=== PATIENT | male | born 1995 | race Two or more races ===

== ENCOUNTER 2017-05-07 10:02 | Emergency (ER) | payer OTHER ==
[~2017-05-07] VITALS: Ht 190.5 cm; Wt 113.4 kg
[2017-05-07 10:46] LABS: Basophils # (auto) 0.1 uL; Basophils % (auto) 0.7 % (0.0-2.0); Eosinophils # (auto) 0.2 uL; Eosinophils % (auto) 1.7 % (0.0-7.0); Hematocrit 49.8 % (41.0-53.0); Hemoglobin 17.7 g/dL (13.5-17.5); Lymphocytes # (auto) 2.5 uL; Lymphocytes % (auto) 24.1 % (10.0-50.0); Mean Corpuscular Hgb Conc. 35.6 g/dL (32.0-36.0); Mean Corpuscular Volume 87.1 fL (80.0-100.0); Mean Platelet Volume 9.4 fL (7.4-10.4); Monocytes # (auto) 0.7 uL; Monocytes % (auto) 7.3 % (0.0-12.0); Neutrophils # (auto) 6.8 uL; Neutrophils % (auto) 66.2 % (37.0-80.0); Nucleated Red Blood Cells % 0.4 %; Platelet Count (auto) 255 10^3/uL (140-450); White Blood Cell 10.2 10^3/uL (4.4-10.8)
[2017-05-07 10:59] LABS: Albumin 3.9 g/dL (3.4-5.0); BUN/Creatinine Ratio 18.1; Bilirubin, Total 0.5 mg/dL (0.2-1.0); Calcium 8.9 mg/dL (8.5-10.1); Potassium 4.1 mmol/L (3.5-5.1); Total Protein 7.9 g/dL (6.4-8.2)
[2017-05-07 14:22] VITALS: BP 136/89
[2017-05-07 16:17] LABS: Urine Bilirubin Negative (Negative); Urine Blood Negative /uL (Negative); Urine Color Yellow (Yellow); Urine Glucose Normal (Normal); Urine Ketone Negative (Negative); Urine Nitrite Negative (Negative); Urine RBC <1 /hpf (0 - 3); Urine Squamous Epithelial Cell FEW /hpf (<5); Urine Urobilinogen Normal (Negative)
== END 2017-05-07 16:19 | disposition home or self-care (01) ==
LOC: ER 10:02
DX: R07.89 Other chest pain (principal); R42 Dizziness and giddiness
CPT/HCPCS: 36415; 71020; 80053; 80307; 81001; 85025; 93005

== ENCOUNTER 2017-07-24 12:00 | Emergency (ER) | payer BC, MEDICAID ==
[~2017-07-24] VITALS: Ht 190.5 cm; Wt 108.9 kg
[2017-07-24 12:05] VITALS: BP 137/99
[2017-07-24] MEDS ORDERED: cefTRIAXone SOD 1,000 MG VL IM ONE (13:00)
[2017-07-24] MEDS ORDERED: methylPREDNISolone SOD SUCC 125 MG/2 ML VL IM ONE (13:00)
== END 2017-07-24 13:01 | disposition home or self-care (01) ==
LOC: ER 12:00
DX: J03.90 Acute tonsillitis, unspecified (principal)
CPT/HCPCS: 96372; 99284; J0696; J2930

== ENCOUNTER 2017-12-09 13:10 | Emergency (ER) | payer BC, OTHER | END 2017-12-09 14:08 | disposition left against medical advice (07) | LOC: ER 13:10 | DX: H57.8 Other specified disorders of eye and adnexa (principal); Z53.21 Procedure and treatment not carried out due to patient leaving prior to being seen by health care provider ==

== ENCOUNTER 2017-12-10 07:34 | Emergency (ER) | payer BC, MEDICAID ==
[~2017-12-10] VITALS: Ht 190.5 cm; Wt 113.4 kg
[2017-12-10 07:42] VITALS: BP 148/81
[2017-12-10] MEDS ORDERED: diphenhdrAMINE HCL 25 MG CAP PO ONE (08:00)
[2017-12-10] MEDS ORDERED: methylPREDNISolone SOD SUCC 125 MG/2 ML VL IM ONE (08:00)
== END 2017-12-10 08:04 | disposition home or self-care (01) ==
LOC: ER 07:34
DX: L03.211 Cellulitis of face (principal)
CPT/HCPCS: 99283; J2930

== ENCOUNTER 2018-07-31 12:45 | Emergency (ER) | payer BC, MEDICAID ==
[~2018-07-31] VITALS: Ht 190.5 cm; Wt 108.9 kg
[2018-07-31 13:15] VITALS: BP 159/111
[2018-07-31] MEDS ORDERED: LIDOCAINE 1% HCL (LOCAL ANESTH.) INJ 20ML MDV IJ ONE (14:00)
== END 2018-07-31 14:13 | disposition home or self-care (01) ==
LOC: ER 12:45
DX: S61.210A Laceration without foreign body of right index finger without damage to nail, initial encounter (principal); W26.0XXA Contact with knife, initial encounter; Y93.89 Activity, other specified; Y92.89 Other specified places as the place of occurrence of the external cause; Y99.8 Other external cause status
CPT/HCPCS: 12001

== ENCOUNTER 2023-07-23 18:55 | Emergency (ER) | payer BC, MEDICAID, OTHER ==
[~2023-07-23] VITALS: Ht 190.5 cm; Wt 118.8 kg
[2023-07-23 20:05] LABS: Basophils # (auto) 0.1 10 ^3/uL (0-0.2); Basophils % (auto) 0.4 % (0.0-2.0); Eosinophils # (auto) 0.1 10 ^3/uL (0-0.8); Eosinophils % (auto) 0.3 % (0.0-7.0); Hematocrit 48.8 % (41.0-53.0); Hemoglobin 16.7 g/dL (13.5-17.5); Lymphocytes % (auto) 17.5 % (10.0-50.0); Mean Corpuscular Hemoglobin 29.7 pg (28.0-32.0); Mean Corpuscular Hgb Conc. 34.3 g/dL (32.0-36.0); Mean Corpuscular Volume 86.5 fL (80.0-100.0); Monocytes # (auto) 1.2 10 ^3/uL (0-1.3); Monocytes % (auto) 6.9 % (0.0-12.0); Neutrophils # (auto) 12.9 10 ^3/uL (1.6-8.6); Neutrophils % (auto) 74.9 % (37.0-80.0); Nucleated Red Blood Cells % 0.9 %; Red Blood Cells 5.64 10^6/uL (4.5-5.90); Red Cell Distribution Width 13.1 % (11.8-14.3); White Blood Cell 17.2 10^3/uL (4.4-10.8)
[2023-07-23 20:25] LABS: Alanine Aminotransferase 30 U/L (7-40); Alkaline Phosphatase 88 U/L (46-116); Anion Gap 8 (5-15); Aspartate Aminotransferase 25 U/L (13-40); BUN/Creatinine Ratio 11.7 (10.0-20.0); Bilirubin, Total 1.1 mg/dL (0.2-1.0); Blood Urea Nitrogen 13 mg/dL (9-23); Carbon Dioxide 29 mmol/L (20-30); Chloride 103 mmol/L (98-107); Glucose 79 mg/dL (74-106); Potassium 3.6 mmol/L (3.5-5.1); Sodium 140 mmol/L (136-145); Total Protein 8.2 g/dL (5.7-8.2)
[2023-07-23 20:32] LABS: Urine Bacteria NONE SEEN /hpf (None Seen); Urine Blood Negative /uL (Negative); Urine Clarity Clear (Clear); Urine Color Yellow (Yellow); Urine Protein, UAD Negative (Negative); Urine Specific Gravity 1.025 (1.001-1.035); Urine Urobilinogen Normal (Negative); Urine WBC 1 /hpf (0 - 3); Urine pH 5.5 (5.0-8.0)
[2023-07-23 20:38] LABS: Lipase 38 U/L (12-53)
[2023-07-23] MEDS ORDERED: ONDANSETRON ODT 4 MG TAB PO ONE (23:00)
[2023-07-23] MEDS ORDERED: HYDROcodone-ACET 5/325MG TAB PO ONE (23:00)
[2023-07-23] MEDS ORDERED: LIDOCAINE VISCOUS 2% 15ML UD MT ONE (23:45)
[2023-07-23] MEDS ORDERED: FAMOTIDINE 20 MG TAB PO ONE (23:45)
[2023-07-23] MEDS ORDERED: MAALOX PLUS or MAALOX 30 ML PO ONE (23:45)
[2023-07-23 23:51] VITALS: BP 146/98; PULSE 83; RESP 17; O2SAT 98
[2023-07-24] MEDS ORDERED: FAMO20TA10 PO (00:08)
[2023-07-24] MEDS ORDERED: ZOFR4T PO (00:08)
[2023-07-24] MEDS ORDERED: HYDR-4902 PO (00:08)
== END 2023-07-24 00:47 | disposition home or self-care (01) ==
LOC: ER 18:55
DX: K29.00 Acute gastritis without bleeding (principal); K76.0 Fatty (change of) liver, not elsewhere classified; D72.829 Elevated white blood cell count, unspecified; R10.13 Epigastric pain; Z79.899 Other long term (current) drug therapy
CPT/HCPCS: 36415; 76705; 80053; 81001; 83690; 85025; 99284; Q0162